=== PATIENT | male | born 1935 | race Two or more races ===

== ENCOUNTER 2020-12-15 11:10 | Outpatient (CLI) | payer MEDICARE, BC | END 2020-12-15 23:59 | disposition home or self-care (01) | LOC: EDBD → WOU 11:10 | PROVIDERS: ATTEND Specialist | DX: N30.41 Irradiation cystitis with hematuria (principal); C61 Malignant neoplasm of prostate; Z92.3 Personal history of irradiation; R05 Cough | CPT/HCPCS: 71045; G0463 ==